=== PATIENT | female | born 1995 ===

== ENCOUNTER 2023-11-02 11:00 | Outpatient (REF) | payer OTHER, SELFPAY ==
--- NOTE | 2023-11-02 09:20 | PAPFT_PTH ---
PATIENT: Yolanda Barron LOC: [facility] U#:[id number] AGE/SX: 27/F ROOM: RE11/02/[address]: Nikole Schmid : 1995 BED: DIS: 11/02/2023 SPEC #: [id number] RECD: 11/02/23 17:24 STATUS: YURIY REYovani #: [id number] CAROLINE: 11/02/23 09:[address]: Nikole Schmid DEPT: [facility] Cytology RECD BY: Jing Wellington ENTERED: 11/02/23 17:24 SP TYPE: PAPFT ROSALVA DR: Unknown,Unknown Tissues: 1 - CX/ENDOCX FOR PAP SMEARS Procedures: PAP THIN PREP/[facility] Screening HPV DNA PROBE Comments: [id number]
== END 2023-11-02 11:01 | disposition home or self-care (01) ==
LOC: NCHCN 11:00
PROVIDERS: Visit Provider Family Medicine
DX: Z12.4 Encounter for screening for malignant neoplasm of cervix (principal); R87.610 Atypical squamous cells of undetermined significance on cytologic smear of cervix (ASC-US); Z11.51 Encounter for screening for human papillomavirus (HPV)
CPT/HCPCS: 88142; 87624

== ENCOUNTER 2024-12-02 17:41 | Outpatient (REF) | payer OTHER, SELFPAY ==
[2024-12-02 20:38] LABS: Abs Immature Grans 0.01 10^3/uL (0.0-0.06); HCT 42.1 % (36.0-46.0); HGB 14.4 g/dL (11.2-15.7); Immature Grans % 0.1 %; MCH 28.7 pg (27.0-33.0); MCHC 34.2 % (32.0-36.0); MCV 84 fL (80-95); MPV 11.5 fL (8.0-11.0); Platelet Count 274 10^3/uL (130-400); RBC 5.01 10^6/uL (3.93-5.22); RDW 12.6 % (11.7-14.6); RDW-SD 38.8 fL; WBC 7.79 10^3/uL (4.4-10.8)
[2024-12-02 20:48] LABS: Calculated LDL 53 mg/dL (<100); Cholesterol 140 mg/dL (<200); HDL Cholesterol 67 mg/dL (>or=50); Triglyceride 100 mg/dL (<150)
== END 2024-12-02 17:42 | disposition home or self-care (01) ==
LOC: NCHCN 17:41
PROVIDERS: Visit Provider Family Medicine
DX: F64.0 Transsexualism (principal)
CPT/HCPCS: 80061; 85025